=== PATIENT | female | born 1955 ===

== ENCOUNTER 2025-02-17 10:30 | Inpatient (IN) | payer OTHER ==
[~2025-02-17] VITALS: Ht 160 cm; Wt 75.7 kg
[2025-02-17] MEDS ORDERED: LIPITOR40 MG PO (11:18)
[2025-02-17] MEDS ORDERED: COZAAR100 MG PO (11:18)
[2025-02-17] MEDS ORDERED: HYDROCHLOROTHIA50 MG PO (11:19)
[2025-02-17] MEDS ORDERED: GLIMEPIRIDE1 M1 PO (11:20)
[2025-02-17] MEDS ORDERED: CARVEDILOL ER40 MG (11:20)
[2025-02-17] MEDS ORDERED: AMLODIPINE-OLM1 EAC2 PO (11:20)
[2025-02-17] MEDS ORDERED: ECOTRIN81 MG PO (11:21)
[2025-02-17] MEDS ORDERED: ACID CONTROLLER20 MG PO (11:21)
[2025-02-17] MEDS ORDERED: VITAMIN C1000 MG PO (11:21)
[2025-02-17 11:22] VITALS: BP 143/82
[2025-02-17] MEDS ORDERED: VITAMIN D (11:22)
[2025-02-17 11:56] LABS: RH POSITIVE
[2025-02-23] MEDS ORDERED: CEFAZOLIN SODIUM 1,000 MG VIAL IV ONE (10:45)
[2025-02-23] MEDS ORDERED: TRANEXAMIC ACID 100MG/1ML (1000MG) AMPUL IV ONE ×2 (10:45)
[2025-02-23] MEDS ORDERED: VANCOMYCIN HCL 1,000 MG VIAL IR ONE (10:45)
[2025-02-23] MEDS ORDERED: MORPHINE SULFATE 4 MG/ML CARTRIDGE IV ONE (10:45)
[2025-02-23] MEDS ORDERED: KETOROLAC TROMETHAMINE 60 MG VIAL IM ONE (10:45)
[2025-02-23] MEDS ORDERED: ENALAPRILAT DIHYDRATE 1.25 MG/ML VIAL IV PRN (14:45)
[2025-02-23] MEDS ORDERED: MORPHINE SULFATE 4 MG/ML VIAL IV ONE (15:20)
[2025-02-23] MEDS ORDERED: ONDANSETRON HCL 2 MG/ML VIAL IV PRN (15:30)
[2025-02-23] MEDS ORDERED: SODIUM CHLORIDE 0.45 % 1,000 ML IV SCH (15:30)
[2025-02-23] MEDS ORDERED: OxyCODONE HCL 5 MG TABLET (ROXICODONE) PO PRN (15:30)
[2025-02-23] MEDS ORDERED: MORPHINE SULFATE 4 MG/ML CARTRIDGE IV PRN (15:30)
[2025-02-23] MEDS ORDERED: ONDANSETRON HCL 2 MG/ML VIAL IV ONE (16:45)
[2025-02-23] MEDS ORDERED: GABAPENTIN 300 MG CAPSULE PO SCH (17:00)
[2025-02-23] MEDS ORDERED: CEFAZOLIN SODIUM 1,000 MG VIAL IV SCH (17:00)
[2025-02-23] MEDS ORDERED: ACETAMINOPHEN 500 MG GEL..CAP PO SCH (18:00)
[2025-02-23] MEDS ORDERED: CARVEDILOL 3.125 MG TABLET PO SCH (21:00)
[2025-02-23 22:15] VITALS: BP 138/62; O2SAT 92
[2025-02-24 06:58] LABS: BASO % 0.5 % (0.1-1.2); EOS # 0.05 (0.04-0.54); EOS % 0.8 % (0.7-7.0); LYMPH # 1.33 (1.18-3.74); LYMPH % 22.5 % (19.3-53.1); MEAN PLATELET VOLUME 10.50 fl (9.4-12.4); MONO # 0.76 (0.24-0.82); NEUT # 3.72 (1.56-6.13); NEUT % 63.0 % (34.0-71.1); RED CELL DISTRIBUTION WIDTH 13.9 % (11.6-14.4)
[2025-02-24 07:08] LABS: MONO % 12.9 % (4.7-12.5)
[2025-02-24] MEDS ORDERED: AMLODIPINE BESYLATE 5 MG TABLET PO SCH (09:00)
[2025-02-24] MEDS ORDERED: APIXABAN 2.5 MG TABLET PO SCH (09:00)
[2025-02-24] MEDS ORDERED: LOSARTAN POTASSIUM 100 MG TABLET PO SCH (09:00)
[2025-02-24] MEDS ORDERED: ATORVASTATIN CALCIUM 40 MG TABLET PO SCH (09:00)
[2025-02-24] MEDS ORDERED: SENNOSIDES 1 TAB TABLET PO SCH (09:00)
[2025-02-24] MEDS ORDERED: ELIQUIS2.5 MG PO (09:01)
[2025-02-24] MEDS ORDERED: DUI500 PO (09:01)
[2025-02-24] MEDS ORDERED: PERCOCET 5-3251 EACH PO (09:01)
[2025-02-24 10:10] VITALS: BP 129/80; O2SAT 98
[2025-02-24 13:37] LABS: COVID-19 AG NEGATIVE (NEGATIVE)
[2025-02-24 14:15] LABS: ALT/SGPT 26.0 U/L (12-78); AST/SGOT 26.0 U/L (15-37); BILIRUBIN TOTAL 0.49 mg/dL (0.3-1.2); BUN CREA RATIO 21.0 (7.0-25.0); CREATININE SERUM 0.56 mg/dL (0.55-1.02); GFR 107.65; GLOBULINA 3.3 G/DL (2.4-3.5); GLUCOSE FASTING 144.0 mg/dL (65-100); OSMOLALITY SERUM 289.0 MOSM/KG (275-295)
[2025-02-24 16:33] VITALS: BP 115/67; O2SAT 94
[2025-02-25] MEDS ORDERED: IRON FUM,PS/FOLIC ACID/VITC/B3 1 CAP CAPSULE PO SCH (09:00)
== END 2025-02-24 19:08 | DRG 470 ==
LOC: SURG 02-23 08:00 → O/R 02-23 08:00 → SURH 02-23 10:30 → SURG 02-23 15:46 → SURH 02-23 16:45 → OB/GYN 02-23 20:44 → SURG 02-23 21:20
PROVIDERS: ADMIT Orthopaedic Surgery; ATTEND Orthopaedic Surgery
PROC: 0QUD0JZ Supplement Right Patella with Synthetic Substitute, Open Approach (ICD-10-PCS; 2025-02-23)
PROC: 0QUD0KZ Supplement Right Patella with Nonautologous Tissue Substitute, Open Approach (ICD-10-PCS; 2025-02-23)
PROC: 0MNN0ZZ Release Right Knee Bursa and Ligament, Open Approach (ICD-10-PCS; 2025-02-23)
PROC: 0SRC0JZ Replacement of Right Knee Joint with Synthetic Substitute, Open Approach (ICD-10-PCS; principal; 2025-02-23 16:45)
DX: M17.11 Unilateral primary osteoarthritis, right knee (principal); I10 Essential (primary) hypertension; E66.9 Obesity, unspecified; E11.9 Type 2 diabetes mellitus without complications; Z96.651 Presence of right artificial knee joint; M22.11 Recurrent subluxation of patella, right knee; Z68.29 Body mass index [BMI] 29.0-29.9, adult